=== PATIENT | male | born 1935 | race Caucasian/White ===

== ENCOUNTER 2017-10-03 12:34 | Emergency (ER) | payer OTHER ==
[~2017-10-03] VITALS: Ht 172.7 cm; Wt 85.0 kg
[2017-10-03 12:41] VITALS: BP 179/82; PULSE 79; RESP 16; TEMP 97.6; O2SAT 96
[2017-10-03] MEDS ORDERED: ATOR40TA16 PO (12:54)
[2017-10-03] MEDS ORDERED: METO25TA3 PO (12:54)
[2017-10-03] MEDS ORDERED: EZET10 PO (12:54)
[2017-10-03] MEDS ORDERED: AMLO10TA2 PO (12:54)
[2017-10-03] MEDS ORDERED: ASPI-183 PO (12:54)
[2017-10-03] MEDS ORDERED: RENAXA PO (12:55)
[2017-10-03 13:23] LABS: AUTOMATED NEUTROPHIL # 7.6 TH/MM3 (1.8-7.7); BASOPHIL # 0.2 TH/MM3 (0-0.2); BASOPHIL % 2.4 % (0.0-2.0); EOSINOPHIL % 0.5 % (0.0-4.0); HEMATOCRIT 41.6 % (39.0-51.0); HEMOGLOBIN 13.5 GM/DL (13.0-17.0); LYMPH % 10.8 % (9.0-44.0); MEAN CELL VOLUME 88.6 FL (80.0-100.0); MEAN CORPUSCULAR HEMOGLOBIN 28.7 PG (27.0-34.0); MEAN CORPUSCULAR HGB CONC 32.4 % (32.0-36.0); MEAN PLATELET VOLUME 7.9 FL (7.0-11.0); MONO % 6.7 % (0.0-8.0); MONOCYTE # 0.6 TH/MM3 (0-0.9); NEUT % 79.6 % (16.0-70.0); PLATELET COUNT 265 TH/MM3 (150-450); RED CELL DISTRIBUTION WIDTH 13.8 % (11.6-17.2); WHITE BLOOD COUNT 9.4 TH/MM3 (4.0-11.0)
[2017-10-03 13:28] LABS: CHLORIDE 104 MEQ/L (98-107); SODIUM (NA) 139 MEQ/L (136-145)
[2017-10-03 13:31] LABS: CALCIUM 8.6 MG/DL (8.5-10.1)
[2017-10-03 13:32] LABS: ALBUMIN 3.6 GM/DL (3.4-5.0); BLOOD UREA NITROGEN 11 MG/DL (7-18); GLUCOSE,RANDOM 114 MG/DL (74-106); INTERNATIONAL NORMALIZED RATIO 1.1 RATIO
[2017-10-03 13:35] LABS: ALT (GPT) 19 U/L (12-78); AST (GOT) 23 U/L (15-37); CREATININE 0.88 MG/DL (0.60-1.30); GLOMERULAR FILTRATION RATE 83 ML/MIN (>89)
[2017-10-03 13:36] LABS: TOTAL BILIRUBIN ADULT 0.8 MG/DL (0.2-1.0)
[2017-10-03 13:38] LABS: ALKALINE PHOSPHATASE 92 U/L (45-117)
[2017-10-03 13:40] LABS: TROPONIN I LESS THAN 0.02 NG/ML (0.02-0.05)
[2017-10-03 13:43] VITALS: BP_SYST 168; BP_SYST 171; BP_SYST 176; BP_DIAS 76; BP_DIAS 79; BP_DIAS 83; RESP 16
[2017-10-03 14:16] VITALS: BP 168/77; PULSE 75; O2SAT 95
[2017-10-03] MEDS ORDERED: MECL-62 PO (14:28)
--- NOTE | 2017-10-03 14:28 | PD ---
HPI Chief Complaint: Dizziness Time Seen by Provider: 14:22 Travel History International Travel<30 days: No Contact w/Intl Traveler<30days: No Traveled to known affect area: No History of Present Illness HPI Patient presents with complaints of new onset dizziness since yesterday. Mild associated nausea. History of chronic BPV. Reports good fluid intake. Denies any nausea vomiting diarrhea or fever. Denies any new chest pain shortness of breath urinary or bowel symptoms. He does not use a cane. Denies any falls. Denies any extremity weakness. 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) Social History Alcohol Use: No Tobacco Use: No Substance Use: No Allergies-Medications (Allergen,Severity, Reaction): Coded Allergies: No Known Allergies (Unverified , 10/03/17) Reported Meds & Prescriptions Reported Meds & Active Scripts Active Reported [Renaxa] 500 Mg PO Metoprolol Tartrate 25 Mg Tab 25 Mg PO BID Amlodipine (Amlodipine Besylate) 10 Mg Tab 10 Mg PO DAILY Atorvastatin (Atorvastatin Calcium) 40 Mg Tab 40 Mg PO HS Zetia (Ezetimibe) 10 Mg Tab 10 Mg PO DAILY Aspirin 325 Mg Tab 325 Mg PO DAILY Review of Systems General / Constitutional: No: Fever Eyes: No: Visual changes HENT: No: Headaches Cardiovascular: No: Chest Pain or Discomfort Respiratory: No: Shortness of Breath Gastrointestinal: No: Abdominal Pain Genitourinary: No: Dysuria Musculoskeletal: No: Pain Skin: No Rash Neurologic: Positive: Dizziness, No: Weakness Psychiatric: No: Depression Endocrine: No: Polydipsia Hematologic/Lymphatic: No: Easy Bruising Physical Exam Narrative GENERAL: Well-nourished, well-developed patient. SKIN: Focused skin assessment warm/dry. HEAD: Normocephalic. EYES: No scleral icterus. No injection or drainage. NECK: Supple, trachea midline. No JVD or lymphadenopathy. CARDIOVASCULAR: Regular rate and rhythm without murmurs, gallops, or rubs. RESPIRATORY: Breath sounds equal bilaterally. No accessory muscle use. GASTROINTESTINAL: Abdomen soft, non-tender, nondistended. MUSCULOSKELETAL: No cyanosis, or edema. BACK: Nontender without obvious deformity. No CVA tenderness. Data Data Last Documented VS Vital Signs Date Time Temp Pulse Resp B/P (MAP) Pulse Ox O2 Delivery O2 Flow Rate FiO2 10/03/17 14:16 75 168/77 (107) 95 10/03/17 13:43 16 10/03/17 12:47 Room Air 10/03/17 12:41 97.6 Orders Orders Electrocardiogram (10/03/17 13:06) Complete Blood Count With Diff (10/03/17 13:06) Comprehensive Metabolic Panel (10/03/17 13:06) Creatine Kinase (Cpk) (10/03/17 13:06) Ckmb (Isoenzyme) Profile (10/03/17 13:06) Troponin I (10/03/17 13:06) Prothrombin Time / Inr (Pt) (10/03/17 13:06) Act Partial Throm Time (Ptt) (10/03/17 13:06) Orthostatic Vital Signs (10/03/17 13:21) Meclizine (Antivert) (10/03/17 14:30) Ondansetron Inj (Zofran Inj) (10/03/17 14:30) Sodium Chloride 0.9% Flush (Ns Flush) (10/03/17 14:30) Labs Laboratory Tests Test 10/03/17 13:00 White Blood Count 9.4 TH/MM3 Red Blood Count 4.70 MIL/MM3 Hemoglobin 13.5 GM/DL Hematocrit 41.6 % Mean Corpuscular Volume 88.6 FL Mean Corpuscular Hemoglobin 28.7 PG Mean Corpuscular Hemoglobin Concent 32.4 % Red Cell Distribution Width 13.8 % Platelet Count 265 TH/MM3 Mean Platelet Volume 7.9 FL Neutrophils (%) (Auto) 79.6 % Lymphocytes (%) (Auto) 10.8 % Monocytes (%) (Auto) 6.7 % Eosinophils (%) (Auto) 0.5 % Basophils (%) (Auto) 2.4 % Neutrophils # (Auto) 7.6 TH/MM3 Lymphocytes # (Auto) 1.0 TH/MM3 Monocytes # (Auto) 0.6 TH/MM3 Eosinophils # (Auto) 0.0 TH/MM3 Basophils # (Auto) 0.2 TH/MM3 CBC Comment DIFF FINAL Differential Comment Prothrombin Time 11.0 SEC Prothromb Time International Ratio 1.1 RATIO Activated Partial Thromboplast Time 24.0 SEC Blood Urea Nitrogen 11 MG/DL Creatinine 0.88 MG/DL Random Glucose 114 MG/DL Total Protein 8.0 GM/DL Albumin 3.6 GM/DL Calcium Level 8.6 MG/DL Alkaline Phosphatase 92 U/L Aspartate Amino Transf (AST/SGOT) 23 U/L Alanine Aminotransferase (ALT/SGPT) 19 U/L Total Bilirubin 0.8 MG/DL Sodium Level 139 MEQ/L Potassium Level 3.8 MEQ/L Chloride Level 104 MEQ/L Carbon Dioxide Level 27.0 MEQ/L Anion Gap 8 MEQ/L Estimat Glomerular Filtration Rate 83 ML/MIN Total Creatine Kinase 68 U/L Troponin I LESS THAN 0.02 NG/ML MDM Medical Decision Making Medical Screen Exam Complete: Yes Emergency Medical Condition: Yes Differential Diagnosis BPV, orthostatic hypotension, hypovolemia, hypoglycemia Narrative Course Assessment and plan discussed with patient and at bedside. EKG reveals sinus rhythm rate of 73. Labs reviewed with patient and within normal limits. Diagnosis Primary Impression: BPV (benign positional vertigo) Qualified Codes: H81.10 - Benign paroxysmal vertigo, unspecified ear Patient Instructions: General Instructions Additional Instructions: Rest fluids and Motrin. Return to emergency with any onset of new symptoms. Meclizine as needed. Med/Other Pt SpecificInfo: Prescription(s) given Scripts Meclizine (Meclizine) 25 Mg Tab 25 MG PO TID Y for VERTIGO, #30 TAB 0 Refills Prov: Ajith Cueva MD 10/03/17 Disposition: 01 DISCHARGE HOME Condition: Good Ajith Cueva MD Oct 03, 2017 14:28
[2017-10-03] MEDS ORDERED: MECLIZINE HCL 25 MG TAB PO ONE (14:30)
[2017-10-03] MEDS ORDERED: ONDANSETRON HCL 4 MG/2 ML VIAL IVP ONE (14:30)
[2017-10-03] MEDS ORDERED: SODIUM CHLORIDE 0.9% FLUSH 10 ML FLUSH IVF PRN (14:30)
[2017-10-03 14:44] VITALS: BP 159/79
--- NOTE | 2017-10-04 18:15 | EKG ---
Date Performed: 10/03/2017 Time Performed: 13:33:55 PTAGE: 82 years EKG: Sinus rhythm POSSIBLE LEFT ATRIAL ENLARGEMENT RIGHT BUNDLE BRANCH BLOCK LEFT ANTERIOR FASCICULAR BLOCK ABNORMAL E CG NO PREVIOUS TRACING DOCTOR: Rossi Rapp Interpretating Date/Time 10/04/2017 18:13:34
== END 2017-10-03 15:00 | disposition home or self-care (01) ==
LOC: PHED 12:34
DX: H81.10 Benign paroxysmal vertigo, unspecified ear (principal); R11.0 Nausea; R94.31 Abnormal electrocardiogram [ECG] [EKG]; I10 Essential (primary) hypertension; E78.00 Pure hypercholesterolemia, unspecified; Z95.1 Presence of aortocoronary bypass graft
CPT/HCPCS: 80053; 82550; 84484; 85025; 85610; 85730; 93005; 96374; 99284; J2405